=== PATIENT | male | born 1985 | race Caucasian/White ===

== ENCOUNTER 2021-03-06 13:36 | Emergency (ER) | payer OTHER ==
[2021-03-06 15:14] LABS: BASOPHIL 0.7 % (0-2); EOSINOPHIL 1.4 % (0-5); HCT 43.1 % (42.0-52.0); HGB 15.2 g/dl (13.2-18.0); LYMPHOCYTE 38.6 % (15-48); MCH 36.6 pg (25.0-31.0); MCHC 35.3 g/dL (32.0-36.0); MCV 103.9 fL (78.0-100.0); MPV 8.8 fL (6.0-9.5); NEUTROPHIL 49.1 % (41-80); NRBC 0; PLT 118 K/uL (150-400); RBC 4.15 M/uL (4.70-6.00); WBC 4.3 K/uL (4.0-10.5)
[2021-03-06 15:40] LABS: ALKALINE PHOSHATASE 142 U/L (46-116); ALT 113 U/L (16-63); AST 173 U/L (15-37); BILIRUBIN - TOTAL 0.5 mg/dL (0.2-1.0); BUN 7 mg/dL (7-18); CHLORIDE 97 mmol/L (98-107); CO2 (BICARBONATE) 32 mmol/L (21-32); CREATININE 0.78 mg/dL (0.67-1.17); GLOBULIN (CALCULATION) 3.6 g/dL; GLUCOSE 109 mg/dL (74-106); LIPASE 184 U/L (73-393); POTASSIUM 3.2 mmol/L (3.5-5.1); TOTAL PROTEIN 7.6 g/dL (6.4-8.2)
[2021-03-06 15:44] LABS: ACETAMINOPHEN (TYLENOL) < 2.0 ug/mL (10.0-30.0)
== END 2021-03-06 16:14 | disposition left against medical advice (07) ==
LOC: FER 13:36
PROVIDERS: Emergency Medicine
DX: F10.229 Alcohol dependence with intoxication, unspecified (principal); F10.239 Alcohol dependence with withdrawal, unspecified; F17.200 Nicotine dependence, unspecified, uncomplicated; Z20.822 Contact with and (suspected) exposure to COVID-19; Y90.8 Blood alcohol level of 240 mg/100 ml or more
CPT/HCPCS: 36415; 80053; 83690; 85025; 93005; 99284; G0480; U0002